=== PATIENT | male | born 1960 | race Hispanic/Latino ===

== ENCOUNTER 2016-06-22 07:48 | Day surgery (SDC) | payer OTHER ==
[2016-06-16 09:28] VITALS: BMI 29.7
[2016-06-22] MEDS ORDERED: Phenylephrine 10 mg/ml Inj ONE (10:13)
[2016-06-22] MEDS ORDERED: Midazolam 2 MG/2 ML VIAL ONE (10:13)
[2016-06-22] MEDS ORDERED: Propofol 10 mg/ml Inj (20 ML) ONE (10:13)
[2016-06-22] MEDS ORDERED: Bupivacaine HCl 0.5% PF (30 ml) Inj ONE (10:20)
[2016-06-22] MEDS ORDERED: HYDROmorphone 0.5 mg/0.5 ml ISec ONE (12:52)
[2016-06-22] MEDS ORDERED: Lactated Ringer's 1,000 ML IV ONE ×2 (12:55→13:10)
[2016-06-22] MEDS: HYDROmorphone 0.5 mg/0.5 ml ISec IVP PRN ×5 (13:00→13:46)
[2016-06-22] MEDS ORDERED: HYDROmorphone 0.5 mg/0.5 ml ISec IVP PRN (13:45)
[2016-06-22 13:51] VITALS: RESP 18
[2016-06-22] MEDS ORDERED: Ropivacaine 0.5% 30ML IV ONE (13:56)
[2016-06-22] MEDS ORDERED: Lidocaine 1% Inj (20ml) ONE (13:58)
--- NOTE | 2016-06-22 14:37 | PCM.ANESB4 ---
Infraclavicular Block - Femoral Nerve Block Date of Procedure: 06/22/16 Anesthesiologist: Dr. Venegas Pre-Procedure Diagnosis: Repair of left bicep tendon Post-Procedure Diagnosis: Repair of left bicep tendon Procedure Performed: Brachial Plexus at the Infraclavicular area Left - Procedure Infraclavicular Block: The procedure was explained to the patient that it is for the post-operative pain management. Consent was obtained after a thorough discussion with the patient regarding the benefits and possible complications of local anesthetic block of the brachial plexus at the infraclavicular area. The patient was brought to the operating room and standard monitors were applied. After the surgery, in PACU, patient awake and comfortable after getting adequate pain meds.Time-out was held with the PACU nurse to confirm the correct side and the appropriate block. After applying oxygen by nasal cannula, patient's head was gently rotated away from the operative left shoulder and the area medial to the coracoid process and inferior to the clavicle was carefully palpated. The ultrasound transducer was then applied to the skin in the transverse plane and the brachial plexus was visualized surrounding the axillary artery and deep to the pectoralis major and minor muscles. After thorough identification, this area was prepped with Chloraprep solution and 1 % Lidocaine was injected subcutaneously for topical anesthesia. At this point, a #21 gauge Stimuplex 4-inch needle was inserted cephalad to the ultrasound transducer and inferior to the clavicle in-plane towards the posterior aspect of the axillary artery. Needle advancement was performed carefully under ultrasound visualization. After repeated negative aspiration, 5cc of 0.5% ropivacaine was injected and this was followed with 15cc of 0.5% ropivacaine. Under ultrasound guidance the local anesthetics were observed surrounding the cords of the brachial plexus. The needle was removed intact and sterile dressing was applied. The patient had stable vital signs, was conscious and in no apparent distress. The patient tolerated the infraclavicular block of the brachial plexus well with stable vital signs. Patient still was able to move all five fingers of his left hand but feels numb.
[2016-06-22 16:40] VITALS: BP 156/94; PULSE 82; TEMP 98; O2SAT 98
--- NOTE | 2016-07-06 12:18 | PCM.SURG1 ---
Surgeon's Initial Post Op Note - Surgeon's Notes Surgeon: Estrellita Hsu MD Park Services Specialist: Hiro Che MD Type of Anesthesia: General Endo, Block Regional Pre-Operative Diagnosis: Left elbow distal biceps tendon tear Operative Findings: Left elbow distal biceps tendon tear Post-Operative Diagnosis: Left elbow distal biceps tendon tear Operation Performed: Left elbow #1 primary repair of distal biceps tendon. #2 placement in long arm splint Specimen/Specimens Removed: Specimen= none. tourniquet time= 39min at 250mmHg. complication= none. Implants= Arthrex tension slide dital biceps button and peek interference screw Estimated Blood Loss: EBL {In ML}: 20 Blood Products Given: N/A Drains Used: No Drains Post-Op Condition: Good Date of Surgery/Procedure: 06/22/16 Time of Surgery/Procedure: 14:00
--- NOTE | 2016-07-06 16:49 | OP ---
PROCEDURE DATE: 06/22/2016 PREOPERATIVE DIAGNOSIS: Left elbow distal biceps tendon complete rupture. POSTOPERATIVE DIAGNOSIS: Left elbow distal biceps tendon complete rupture. PROCEDURES: Left elbow: 1. Primary repair of distal biceps tendon. 2. Placement in long arm splint. SURGEON: Estrellita Hsu MD CHIEF ENGINEERING DIVISION: Hiro Che MD JUSTIFICATION FOR CHIEF ENGINEERING DIVISION: Hiro Che is a board certified orthopedic surgeon that is a skilled medical surgical tech whose presence was an absolute necessity for the successful completion of the procedure as he provided skilled surgical assistance with positioning of patient, positioning of extremity, retraction of neurovascular structures, surgical exposure and acquisition of distal biceps tendon, preparation of distal biceps tendon for primary repair, preparation of proximal radius at radial tuberosity for reinsertion of distal biceps tendon, placement of fixation hardware and tension slide technique of distal biceps tendon, and final fixation with interference screw and wound closure. Hiro Che was present for the entire case and was an absolute necessity for the successful completion of the procedure. ANESTHESIA: General endotracheal anesthesia with a postoperative regional nerve block placed by anesthesia staff in PACU. SPECIMENS: None. TOURNIQUET TIME: 39 minutes at 250 mmHg. COMPLICATIONS: None. DISPOSITION: The patient was extubated and transferred to PACU in stable condition and tolerated the procedure well. ESTIMATED BLOOD LOSS: 20 mL. DRAINS: None. IMPLANTS: Arthrex tension slide distal biceps button and suture with backup fixation with a PEEK interference screw. INDICATIONS FOR SURGERY: The patient is a 55-year-old male with no significant past medical history who presented to the office for the first time at [facility] under my care on 06/02/2016 with left elbow pain and weakness. The patient states that on 05/31/2016 he was at a friend's home lifting a couch, helping him move some stuff around and rearrange his apartment, when he felt a pop in his left arm while lifting the couch. He had immediate 10/10 pain and swelling localized to the left elbow. He went to the Emergency Room at [facility] the next day, on 06/01/2016, and he was evaluated by ER staff. X-rays were taken that were read as negative for fracture. He was diagnosed with a sprain of the elbow and possible biceps tendon rupture and he was referred to our office. He presented in the office for the first time on . On my evaluation clinically, the patient on physical exam had a distal biceps tendon tear with a positive douglas sign. He was referred for an MRI of the left elbow which was done at [facility] on which was read as: 1. Complete tear/near complete tear of distal biceps tendon with approximately 5 mm off partial retraction of the distal tendon fibers. 2. Small elbow effusion. 3. Thickening and increased signal within the proximal attachment of the common flexor tendon suggestive for moderate medial epicondylitis. 4. Mild increased signal seen within the proximal attachment of the lateral ulnar collateral ligament suggestive for low grade sprain. 5. Mild insertional tendonopathy of brachialis tendon. On followup in the office, I reviewed his MRI findings with him and his imaging and explained to him that the best treatment for this type of injury in a healthy 55-year-old male who is active is to undergo primary distal biceps tendon repair and it should be done within the next couple of weeks. 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 The risks , benefits, and alternatives to the procedure were discussed at length with the patient with the risks including, but not limited to, infection; neurovascular damage, especially to the posterior interosseous nerve; failure of the tendon, failure of repair, failure of fixation hardware, development of chronic pain and disability, development of blood clots including DVT and PE, need for further surgery including revision surgery, loss of function and inability to return to pre-injury level of activity, anesthesia reactions including . After answering all of his questions, he stated he understood the risks and wished to proceed with surgery. He was referred to his primary care physician for PAT and medical clearance and the procedure was scheduled at [facility] on 06/22/2016, approximately 3 weeks post injury. PROCEDURE IN DETAIL: The patient was identified in the preoperative holding area and the left elbow was marked for surgery. Once again, as described above , the risks, benefits, and alternatives of the procedure were discussed at length with the patient and informed consent was obtained. After a brief discussion with anesthesia staff, perioperative IV antibiotics in the form of 2 g Ancef were administered and the patient was taken to the operating room and placed on the well-padded operating room table with all bony prominences and superficial neurovascular structures well padded and a radiolucent arm table attachment. A final timeout was done with the surgeon, anesthesia staff, and OR staff; all are in agreement with the patient, procedure being done, and extremity being operated on. General anesthesia was administered without difficulty or complication. The left upper extremity was then prepped and draped in standard sterile fashion and a tourniquet was placed high on the left arm and set to 250 mmHg. The limb was exsanguinated and tourniquet was inflated for a total tourniquet time of 39 minutes. A single incision technique was utilized for this procedure. A 3 to 4 cm incision was created 3 fingerbreadths distal to the cubital crease of the arm centered over the radial tuberosity. Incision made through skin down to subcutaneous tissue while maintaining good hemostasis down to the level of the fascia. The lateral antebrachial cutaneous nerve fibers were identified and protected. The brachioradialis was identified and the interval between the brachioradialis and pronator teres was carefully identified with the arm held in extreme pronation to protect the posterior interosseous nerve with the brachioradialis retracted laterally. The distal biceps tendon was easily identified and traced back to its few adherent fibers at the radial tuberosity. Indeed, this was a complete tear with just a remnant, less than 5% of the fibers and fascia, still remaining attached to the radial tuberosity. The remaining fibers were detached and the distal biceps tendon was brought into the middle of surgical field. There were some adherent scar tissue bands and fascial bands that were debrided and released. With the use of a #2 FiberLoop suture, the distal end of the biceps tendon, most distal 3 cm, were prepared with a whipstitch fashion. The end of the tendon that was poor quality injured tissue and tendinopathy tissue was resected. The end of the tendon was then smoothed out for easy docking into the future repair site. Once the preparation of the distal biceps tendon was completed, attention was then turned towards preparation of the radial tuberosity and recipient/repair docking site. With the use of mini C-arm biplanar fluoroscopic imaging, the radial tuberosity optimal point for reinsertion of the distal biceps tendon was identified and confirmed, and with smooth/blunt retractors in place and the arm held in extreme pronation to protect the posterior interosseous nerve, a Steinmann pin from the Arthrex distal biceps repair kit was then placed bicortically centered on the radial tuberosity. The tendon itself measured a little over 6 mm and fit easily in the 7 mm sizing guide and, therefore, a 7 mm screw would be used with [id number] fit. A 7 mm unicortical docking site was then created and the cannulated 7 mm reamer/drill was passed over the guidewire and only the near cortex was drilled with good well-contained docking site created that was unicortical. The guidewire and cannulated drill were then removed and the wound was copiously irrigated to remove the bony fragments. Once all bony residue and fragments were removed, under direct visualization you can see that the near cortex was overdrilled with a 7 mm drill and the far cortex only had the sensor 2.5 mm hole from the K-wire. The suture from the ends of the whipstitch at the distal biceps tendon were then passed through the tension slide button from Arthrex in opposite directions and, with the use of the handle for the tension slide button, the button was passed through the far hole at the docking site and flipped with no interposed soft tissue directly onto the proximal radius bone, and this was confirmed with biplanar fluoroscopic imaging confirming optimal placement of the tension slide button with no interposed soft tissue between the bone and the button. Once we had confirmed that we had good fit of the button and it was flipped, the tension slide technique was employed with the elbow held in pronation and flexion to allow the distal biceps tendon to dock completely up to the 20 mm marking within the docking site. Once the tension slide was completed, a free needle was then used to pass one end of the suture through the distal biceps tendon and backup fixation with a knot tied down to itself between the 2 ends of the suture to hold the tendon within the docking site was carried out. Once this was completed to satisfaction, one end of the suture was passed through a 7 mm PEEK interference screw from Arthrex as well and the screw was placed as backup fixation into the docking site with good interference and press-fit achieved. Once the screw was in a good position and completely seated, the end of the suture that had been passed through the screw was once again passed through the distal biceps tendon and both ends of the suture were tied down as tertiary fixation. Ends of the suture were cut and the wound was copiously irrigated. The tourniquet was then deflated for a total tourniquet time of 39 minutes and good hemostasis was achieved. The lateral antebrachial cutaneous nerve was inspected and found to be continuous throughout its path with no evidence of any injury. As stated before, care was taken to use blunt retractors as well as hold the arm in pronation to protect the posterior interosseous nerve. The construct was tested and good fixation had indeed been achieved. Biplanar fluoroscopic imaging showed screw and tension slide button in good position with no interposed soft tissue. Wound closure was then begun with 2-0 Vicryl suture for deep tissue followed by 3-0 Monocryl suture for skin. Sterile dressings were applied followed by a layer of sterile cast padding from the metacarpal heads all the way up to the proximal arm. The arm was then placed in a posterior and U-splint. Once the splint hardened, the patient was then extubated and transferred to PACU in stable condition and tolerated the procedure well. DISPOSITION: The patient will be discharged home once he has recovered from anesthesia. He will undergo placement of a regional nerve block by anesthesia staff in PACU. He will contact me directly with any questions or concerns. He has been given a prescription for Percocet for pain control. He is instructed to keep the dressings clean, dry, and intact and keep the elbow elevated above the level of his heart at all times. He will follow up within 1 week at [facility] and already has his postoperative followup scheduled. He was examined by me personally in PACU prior to regional block being placed by anesthesia staff, he was neurovascularly intact including intact PIN. Estrellita Hsu MD cc: [id number] TT: 06/23/2016 16:48:19 solitario ENGLISH
== END 2016-06-22 16:50 | disposition home or self-care (01) ==
LOC: H.OPSURG 07:48
PROVIDERS: ATTEND Student in an Organized Health Care Education/Training Program
DX: S46.212A Strain of muscle, fascia and tendon of other parts of biceps, left arm, initial encounter (principal); I10 Essential (primary) hypertension; E03.9 Hypothyroidism, unspecified; E78.5 Hyperlipidemia, unspecified; F41.9 Anxiety disorder, unspecified; X50.0XXA Overexertion from strenuous movement or load, initial encounter; Y93.89 Activity, other specified; Y92.008 Other place in unspecified non-institutional (private) residence as the place of occurrence of the external cause

== ENCOUNTER 2018-08-10 08:00 | Day surgery (SDC) | payer OTHER ==
[2018-08-10] MEDS ORDERED: Lactated Ringer's 500 ML IV ONE (08:14)
[2018-08-10 08:23] VITALS: BMI 30.4
[2018-08-10] MEDS ORDERED: Propofol 10 mg/ml Inj (20 ML) ONE (10:19)
[2018-08-10 10:43] VITALS: TEMP 98; O2SAT 98
[2018-08-10 10:58] VITALS: BP 115/69; PULSE 70; RESP 16
== END 2018-08-10 11:18 | disposition home or self-care (01) ==
LOC: H.ENDO 08:00
PROVIDERS: ATTEND Internal Medicine Gastroenterology
DX: Z12.11 Encounter for screening for malignant neoplasm of colon (principal); E03.9 Hypothyroidism, unspecified; E78.5 Hyperlipidemia, unspecified; I10 Essential (primary) hypertension; K64.1 Second degree hemorrhoids; K57.30 Diverticulosis of large intestine without perforation or abscess without bleeding
CPT/HCPCS: 45378; J2001; J2704; J7120